=== PATIENT | female | born 2005 | race African-American/Black ===

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

== ENCOUNTER 2024-01-13 12:28 | Emergency (ER) | payer MEDICAID ==
[~2024-01-13] VITALS: Ht 154.9 cm; Wt 85.0 kg
[2024-01-13 12:31] VITALS: BP 128/74; PULSE 96; RESP 18; TEMP 98; O2SAT 96
[2024-01-13] MEDS ORDERED: ACETAMINOPHEN 325MG TABLET PO ONE (12:45)
== END 2024-01-13 16:28 | disposition left against medical advice (07) ==
LOC: ER 12:32
DX: R07.89 Other chest pain (principal); J45.909 Unspecified asthma, uncomplicated; Z91.018 Allergy to other foods
CPT/HCPCS: 93005; 99283